=== PATIENT | female | born 1975 | race African-American/Black ===

== ENCOUNTER 2020-03-09 10:15 | Day surgery (SDC) | payer OTHER ==
--- NOTE | 2020-03-09 13:19 | RAD REPORT ---
EXAM DESCRIPTION: US - Breast Core BX w/US Guidance - 03/09/2020 10:57 am CLINICAL HISTORY: N60.92 COMPARISON: Mammogram and ultrasound studies February 27, 2020 TECHNIQUE: The patient presents for ultrasound-guided biopsy of a previously upper-outer quadrant 14 mm left breast mass. The ultrasound-guided core biopsy procedure, risks and alternatives were discussed with the patient i n detail. After answering all questions, both oral and written consent were obtained. Time out proced ure was performed. The patient had no contraindicated allergy or medication history. Preliminary imaging identified the left breast mass. The left breast was prepped and draped in the us ual sterile fashion. From a lateral approach, skin and deeper tissues were anesthetized with 1% lidoc prieto. Under direct sonographic visualization a 14 gauge vacuum assisted core biopsy needle was advanc ed and placed at the margin of the mass. There were a total of 3 core biopsies obtained under direct sonographic guidance. The mass did appear to have distortion in contour supporting transit of the bio psy needle through the small mass. At the conclusion of the procedure a localization clip was placed under sonographic guidance. Post biopsy imaging showed no hematoma or measurable bleeding within the breast. Hemostasis was obtai bree at the skin site with a sterile bandage placed. Post procedure care and precaution instructions were given to the patient. IMPRESSION: 1. Ultrasound-guided core biopsy was performed of the left breast mass. All obtained mat erial was given to pathology for histologic assessment. 2. Post biopsy localization clip was placed under ultrasound guidance.
--- OUTSIDE RECORDS SUMMARY | 2020-03-20 14:03 | XMS REPORT | Continuity of Care Document ---
:1975 Author Organization [facility] t Address [address] [place] [address] [address]. [address] [place] [address] Care Team Providers Name Role Phone Lab, Fam Pob I Attending Clinician Unavailable Doctor Unassigned, Name Attending Clinician Unavailable Problems This patient has no known problems. Allergies, Adverse Reactions, Alerts This patient has no known allergies or adverse reactions. Medications This patient has no known medications. Procedures This patient has no known procedures. Encounters Start End Encounter Admission Attending Care Care Encounter Source Date/Time Date/Time Type Type Clinicians Facility Department ID 2020-03-05 2020-03-05 Laboratory Lab, [facility] [id number] 11:46:05 12:06:05 Only Fam Pob I Health [id number] [place] [id number] [place] [id number] nal [address] 2020-03-05 2020-03-05 Letter Doctor ODESSA [id number] 00:00:00 00:00:00 (Out) UnassignedGEE [id number] [place] [facility] [id number] 044 Results This patient has no known results.
--- OUTSIDE RECORDS SUMMARY | 2020-03-20 14:03 | XMS REPORT | Summary of Care ---
:1975 Author Organization [facility] - Health Address [address] [place] [address] Care Team Providers Name Role Phone Angy Cooley MD Primary Care Provider Encounter Details Date Type Department Care Team Description 03/05/2020 Letter (Out) [facility] DataRPM Message s Doctor Unassigned, No [address] [facility] [place] [address] [address] [facility] [phone] [place] [address] Allergies No Known Allergiesdocumented as of this encounter (statuses as of 03/05/2020) Medications Medication Sig Dispensed Refills Start Date End Date Status diltiazem (CARDIZEM CD) 240 mg 24 hr 0 Active capsule documented as of this encounter (statuses as of 03/05/2020) Active Problems Problem Noted Date Essential hypertension 01/21/2016 documented as of this encounter (statuses as of 03/05/2020) Immunizations Name Administration Dates Next Due TDAP 01/21/2016 documented as of this encounter Social History Tobacco Use Types Packs/Day Years Used Date Never Smoker Smokeless Tobacco: Never Used Alcohol Use Drinks/Week oz/Week Comments No Sex Assigned at Date Recorded Not on file documented as of this encounter Last Filed Vital Signs Not on filedocumented in this encounter Plan of Treatment Health Maintenance Due Date Last Done Comments Depression Screening 1989 PAP SMEAR 1998 Breast Cancer Screening 10/31/2017 10/31/2016 (MAMMOGRAM) INFLUENZA VACCINE (#1) 2019 DTaP,Tdap,and Td Vaccines (2 - Td) 01/20/2026 01/21/2016 PNEUMOCOCCAL 0-64 YEARS COMBINED Aged Out No longer eligible based on SERIES patient's age to complete this topic documented as of this encounter Results Not on filedocumented in this encounter Insurance Payer Benefit Plan / Subscriber ID Effective Phone Address Miguelito burns Group Dates HIM [facility] [id number] 2018-Alberto [phone] [address] HMO HEALTH [employer] [facility] [phone] [place] [address] documented as of this encounter
--- OUTSIDE RECORDS SUMMARY | 2020-03-20 14:04 | XMS REPORT | Summary of Care ---
:1975 Author Organization [facility] Address [address] [place] [address] Care Team Providers Name Role Phone Angy Cooley MD Primary Care Provider Reason for Visit Reason Comments Diarrhea Encounter Details Date Type Department Care Team Description 03/05/2020 Laboratory Only [facility] Family Mariano Thompson, ANISH [address] [place] [address] [address] Contact with or Medicine - [facility], [facility] Fam Pob I exposure to viral [address] [place] [address] disease (P rimary Dx) [place] [address] Allergies No Known Allergiesdocumented as of this [...] Signs Not on filedocumented in this encounter Nursing Notes Darlin Barriga MA - 03/05/2020 11:40 AM CSTTara Verónica Wynne is a 44 year old female here for a Rule Out Covid-19 Nasopharyngeal Swab. Patient educated on plan of care for visit, swabbing technique, risks and benefits of test and length of time toreceive results. Verbal consent obtained to perform test. CDC Fact Sheet for Patients provided to patient. All droplet and contact precautions taken with appropriate PPE worn while interacting with patient. - Goggles - N95 Mask - Gloves - Gown RR=17 O2 Sat=98 Patient swabbed using appropriate nasopharyngeal technique, and patient tolerated well. Patient was discharged in stable condition. 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 Plan of Treatment Name Type Priority Associated Diagnoses Order S deepthi COVID-19 (MOLECULAR LAB Routine Contact with or expos ure Expected: 03/05/2020, TESTING to viral disease Expires: 2020 NUCLEIC ACID AMPLIFICATION) Health Maintenance Due Date Last Done Comments Depression Screening 1989 PAP SMEAR 1998 Breast Cancer Screening 10/31/2017 10/31/2016 (MAMMOGRAM) INFLUENZA VACCINE (#1) 2019 DTaP,Tdap,and Td Vaccines (2 - Td) 01/20/2026 01/21/2016 PNEUMOCOCCAL 0-64 YEARS COMBINED Aged Out No longer eligible based on SERIES patient's age to complete this topic documented as of this encounter Results Not on filedocumented in this encounter Visit Diagnoses Diagnosis Contact with or exposure to viral diseas e - Primary Contact with or exposure to other viral diseases documented in this encounter Additional Health Concerns Infection Onset Date Last Indicated Resolved Time COVID-19 Rule Out 03/05/2020 03/05/2020 documented as of this encounter Insurance Payer Benefit Plan / Subscriber ID Effective Phone Address T ype Group Dates [facility] [id number] 2018-Alberto [phone] [address] [employer] [facility] [employer] [phone] [place] [address] documented as of this encounter
== END 2020-03-09 13:00 | disposition home or self-care (01) ==
LOC: DS 10:15
PROVIDERS: ATTEND Specialist
DX: N60.92 Unspecified benign mammary dysplasia of left breast (principal)
CPT/HCPCS: 19083; 88305

== ENCOUNTER 2020-03-23 07:09 | Day surgery (SDC) | payer OTHER ==
--- NOTE | 2020-03-20 12:07 | RAD REPORT ---
EXAM DESCRIPTION: RAD - Chest Pa And Lat (2 Views) - 03/20/2020 11:45 am CLINICAL HISTORY: preop, pending left breast mass removal COMPARISON: None TECHNIQUE: Frontal and lateral views of the chest were obtained. FINDINGS: The lungs are clear. Overlying breast soft tissue accentuates lung base opacification. No failure or volume overload. Heart size is normal and central vasculature is within normal limits. N o pleural effusion or pneumothorax seen. No acute bony finding noted. No aortic abnormality. IMPRESSION: No acute cardiopulmonary process.
[2020-03-20 12:22] LABS: Absolute Lymphocytes (CBC) 1.7 K/uL (0.7-4.9); Basophils % 0.7 % (0-1.3); Hematocrit 34.1 % (36.0-45.0); Lymphocytes % 33.2 % (15.3-44.8); RBC Red Blood Cell Count 3.72 M/uL (3.86-4.86)
[2020-03-20 12:42] LABS: BUN Blood Urea Nitrogen 8 mg/dL (7-18); Bicarbonate 29 mmol/L (21-32); Glucose Level 112 mg/dL (74-106); Potassium 3.6 mmol/L (3.5-5.1); Sodium Level 141 mmol/L (136-145)
--- NOTE | 2020-03-20 19:32 | EKG ---
Test Date: 2020-03-20 Test Time: 11:47:29 [employer] Writer: CAROLYNN MEASUREMENT RESULTS: Intervals: Rate: 70 HI: 158 QRSD: 84 QT: 370 QTc: 399 [place]: P: 29 HI: 158 QRS: 12 T: 33 INTERPRETIVE STATEMENTS: Normal sinus rhythm Normal ECG Compared to ECG 01/22/2016 21:15:17 Left ventricular hypertrophy no longer present Electronically Signed On 03-20-20 19:32:17 FINANCE INTERN by Dylan Suggs
--- OUTSIDE RECORDS SUMMARY | 2020-03-23 07:11 | XMS REPORT | Continuity of Care Document ---
:1975 Author Organization [facility] t Address [address] [place] [address] Dr. [address]. [address] [place] [address] Care Team Providers Name Role Phone Lab, [...] Facility Department ID 2020-03-05 2020-03-05 Laboratory Lab, [facility] [id number] 11:46:05 12:06:05 Only Fam Pob I Health [id number] [place] [id number] [place] [phone] nal [address] 2020-03-05 2020-03-05 Letter Doctor ODESSA [id number] 00:00:00 00:00:00 (Out) UnassignedGEE [id number] [place] [facility] [id number] 044 Results This patient has no known results.
[2020-03-23 07:51] LABS: Specific Gravity 1.025 (1.005-1.030)
[2020-03-23] MEDS ORDERED: CEFAZOLIN/SWI 1gm 1 GM/10 ML SYR ONE (07:52)
[2020-03-23] MEDS ORDERED: Ringers Lactate 1,000 ML IV ONE ×2 (07:52→10:25)
[2020-03-23] MEDS ORDERED: propofoL 200 MG/20 ML VIAL IV ONE (08:22)
[2020-03-23] MEDS ORDERED: LIDOCAINE 2% MPF 5 ML VIAL ONE (08:22)
[2020-03-23] MEDS ORDERED: FENTANYL CITR 100 MCG/2 ML ONE (08:22)
[2020-03-23] MEDS ORDERED: ONDANSETRON 4 MG/2 ML VIAL ONE (08:23)
[2020-03-23] MEDS ORDERED: MIDAZOLAM HCL 2 MG/2 ML INJ ONE (08:23)
[2020-03-23] MEDS ORDERED: KETOROLAC 30 MG/ML INJ ONE (08:46)
[2020-03-23] MEDS ORDERED: dexAMETHasone 10 MG/ML VIAL ONE (08:46)
--- NOTE | 2020-03-23 08:59 | RAD REPORT ---
EXAM DESCRIPTION: US - Brst,Preop NL Wire Init w/Guid - 03/23/2020 8:37 am CLINICAL HISTORY: LT, left breast 12-13 mm mass previously subjected to core biopsy COMPARISON: Breast Core BX w/US Guidance dated 03/09/2020 TECHNIQUE: Patient presents for ultrasound-guided needle localization of a previously biopsied left breast mass. Patient is pending resection. The procedure was discussed with the patient in detail. Co nsent was obtained as part of the surgical consent. Preliminary imaging again identified the 12-13 mm lobulated hypoechoic mass in the upper outer quadra nt left breast. Skin was prepped and draped in the usual sterile fashion. From a lateral approach, th e skin and deeper tissues were anesthetized with 1% lidocaine. Under direct sonographic visualization a [place] mammo lock 5 centimeter long needle was advanced. The needle was passed through the mass fro m a lateral to medial pathway. Hookwire was set. Needle was seen traversing the mass on final visuali zation. There was no hematoma. Patient tolerated procedure well without complications and was transfe rred back to the surgical holding area for pending biopsy. IMPRESSION: Successful ultrasound-guided needle localization of upper outer quadrant left breast mas s as detailed.
[2020-03-23] MEDS ORDERED: EPHEDRINE SULF 50 MG/ML VIAL ONE (09:23)
--- NOTE | 2020-03-23 09:58 | RAD REPORT ---
EXAM DESCRIPTION: US - Surgical Specimen - 03/23/2020 9:46 am FINDINGS: Sonographic evaluation of the left breast surgical specimen was performed. The 12-13 mm hypoechoic mass is contained within the specimen.
--- NOTE | 2020-03-23 10:04 | OP ---
Date of Procedure: 03/23/2020 Surgeon: Chris Kendall MD Retail Analyst: KIKE Berger. Preoperative Diagnosis: Left breast mass. Postoperative Diagnosis: Left breast mass. Procedure: Needle localization and excision of left breast mass. Estimated Blood Loss: Minimal. Specimen: Left breast mass. Findings: As above. Anesthesia: General. Complications: None. Disposition: The patient tolerated the procedure in stable condition and taken to Recovery in good g eneral condition. Procedure In Detail: Patient was brought to the OR and placed in supine position and general anesthe rosi begun. Patient prepped and draped in usual sterile fashion. Patient had been localized via need le and ultrasound prior to the procedure and then 15 blade was used to make a 3 cm incision in the up per outer quadrant of the left breast, tract of the needle identified and followed and tip of needle excised with tissue around it. Palpable mass was present and this was excised and radiology confirma tion was obtained. Wound irrigated. Bleeding controlled with cautery and then 3-0 chromic used to a pproximate the subcutaneous tissue and close the skin. Sterile dressing was applied. Patient was aw akened and taken to Recovery in good general condition. Discharge Note: The patient will go to Day Surgery and home when stable. Disposition: Home. Condition: Stable. Discharge Instructions: Resume home medications and diet. Activity as tolerated. No heavy lifting. Remove outer dressing in 2 days. Shower. Keep wound clean and dry. Follow up in my office in 1 w tyonek. Call for appointment. Tylenol No 3 one tablet p.o. q.4 p.r.n. pain and keep Steri-Strips on at all times. /MODL Voice ID: [id number] Report ID: [id number]
[2020-03-23 11:02] VITALS: BP 138/88; TEMP 97; O2SAT 96
== END 2020-03-23 11:20 | disposition home or self-care (01) ==
LOC: OR 07:09
PROVIDERS: ATTEND Surgery
PROC: 0HBU0ZZ Excision of Left Breast, Open Approach (ICD-10-PCS; principal; 2020-03-23 08:30)
DX: D24.2 Benign neoplasm of left breast (principal); Z20.828 Contact with and (suspected) exposure to other viral communicable diseases; I10 Essential (primary) hypertension
CPT/HCPCS: 93005; 85025; 80048; 36415; 81025; 88305; 71046; 76098; 19285; 19125; U0002; J2704; J2250; J3010; J1100; J0690; J7120 ×2; J2405